=== PATIENT | male | born 1950 | race Caucasian/White ===

== ENCOUNTER 2023-06-22 06:59 | Day surgery (SDC) | payer MEDICARE ==
[2023-06-17 09:30] VITALS: BMI 27.6
[~2023-06-22 06:59] MED LIST: LACTATED RINGERS 1,000 ML IV SCH; LIDOCAINE 1% (10MG/ML) FOR IV START INTRADERMA PRN
[2023-06-22] MEDS ORDERED: LACTATED RINGERS 1,000 ML IV ONE (07:30)
[2023-06-22 07:40] VITALS: TEMP 97.6
[2023-06-22] MEDS ORDERED: LIDOCAINE 1% INJ 10MG/ML (20 ML MDV) ONE (07:56)
[2023-06-22] MEDS ORDERED: PROPOFOL 10 MG/ML 20 ML VIAL IV ONE (07:56)
--- NOTE | 2023-06-22 08:00 | P.GSHP ---
History of Present Illness H&P Date: 06/22/23 Chief Complaint: GERD, screening 72-year-old male here for upper and lower endoscopy. Patient with chronic reflux symptoms. Worse at night. Leads to coughing issues. Patient with daily tobacco use. No bowel complaints. Patient has a family history of colon cancer in his brother. Past Medical History Past Medical History: GERD/Reflux, Hyperlipidemia, Skin Disorder Additional Past Medical History / Comment(s): rash to neck seeing forming fixer on jun.29 uses inhaler occasionally for sob denies asthma History of Any Multi-Drug Resistant Organisms: None Reported Past Surgical History: Prostate Surgery Additional Past Surgical History / Comment(s): prostate cancer, prostatectomy, left groin blockage Additional Past Anesthesia/Blood Transfusion Reaction / Comment(s): no blood transfusion Smoking Status: Former smoker Medications and Allergies Home Medications Medication Instructions Recorded Confirmed Type Atorvastatin [Lipitor] 40 mg PO DAILY 06/17/23 06/22/23 History lisinopriL [Lisinopril] 10 mg PO DAILY 06/17/23 06/22/23 History Famotidine 20 mg PO DAILY 06/22/23 06/22/23 History Montelukast [Singulair] 10 mg PO DAILY 06/22/23 06/22/23 History Omeprazole 20 mg PO DAILY 06/22/23 06/22/23 History Allergies Allergy/AdvReac Type Severity Reaction Status Date / Time No Known Allergies Allergy Verified 06/22/23 07:20 Surgical - Exam Vital Signs Temp Pulse Resp BP Pulse Ox 97.6 F 89 16 145/81 95 06/22/23 07:15 06/22/23 07:15 06/22/23 07:15 06/22/23 07:15 06/22/23 07:15 Physical exam: General: Well-developed, well-nourished HEENT: Normocephalic, sclerae nonicteric Abdomen: Nontender, nondistended Extremities: No edema Neuro: Alert and oriented Assessment and Plan (1) Colon cancer screening Narrative/Plan: Will proceed with upper and lower endoscopy. Current Visit: Yes Status: Acute Code(s): Z12.11 - ENCOUNTER FOR SCREENING FOR MALIGNANT NEOPLASM OF COLON SNOMED Code(s): 112316498
--- NOTE | 2023-06-22 08:16 | P.PCN ---
Date of Procedure: 06/22/23 Procedure(s) Performed: PREOPERATIVE DIAGNOSIS: GERD, screening, family history of colon cancer POSTOPERATIVE DIAGNOSIS: Gastritis, small hiatal hernia, esophageal plaques suspicious for fungal esophagitis, diverticulosis PROCEDURE: 1. EGD with biopsy 2. Colonoscopy ANESTHESIA: [facility] [place] SURGEON: Tyler Mace M.D. SPECIMENS: Antrum, esophageal plaque ENDOSCOPIC PROCEDURE: The patient was on the endoscopy table in the left decubitus position. The Olympus gastroscope was inserted into the oropharynx and passed under direct visualization to the region of the third portion of the duodenum. From that point the scope was slowly withdrawn inspecting all surfaces carefully. There were no neoplastic inflammatory or polypoid lesions throughout the duodenum. The pylorus was widely patent. The stomach was carefully inspected. There was mild gastritis present. A biopsy of the antrum took place to rule out H. pylori. Retroflexion revealed a small sliding hiatal hernia measuring 1.5 cm. The distal esophagus appear normal. In the mid and proximal esophagus there were whitish plaques suspicious for fungal esophagitis. Biopsies were taken. The patient was kept on the endoscopy table in the left decubitus position. The Olympus colonoscope was inserted into the anus and passed under direct visualization to the base of the cecum. The appendiceal orifice was visualized. From that point the scope was slowly withdrawn inspecting all surfaces carefully. There were no neoplastic inflammatory or polypoid lesions throughout the cecum, ascending, transverse, descending, sigmoid and rectum. There was moderate left-sided diverticulosis noted. Digital rectal examination was normal. The patient was taken to the recovery room in stable condition per anesthesia guidelines. RECOMMENDATIONS: Await biopsy results. We will begin nystatin swish and swallow. Recommend continued antiacid therapy for symptomatic reflux. Repeat colonoscopy 5 years.
[2023-06-22 08:58] VITALS: BP 114/63; PULSE 71; RESP 17
== END 2023-06-22 09:08 | disposition home or self-care (01) ==
LOC: ORWHC2ENDO 06:59
PROVIDERS: ATTEND Surgery
DX: Z12.11 Encounter for screening for malignant neoplasm of colon (principal); K29.50 Unspecified chronic gastritis without bleeding; K44.9 Diaphragmatic hernia without obstruction or gangrene; K21.00 Gastro-esophageal reflux disease with esophagitis, without bleeding; E78.5 Hyperlipidemia, unspecified; Z85.46 Personal history of malignant neoplasm of prostate; Z87.891 Personal history of nicotine dependence; Z79.899 Other long term (current) drug therapy; Z80.0 Family history of malignant neoplasm of digestive organs
CPT/HCPCS: 88305; 88342; 43239; G0105; J2001; J2704; 45378